=== PATIENT | male | born 1955 | race Caucasian/White ===

== ENCOUNTER 2017-02-07 13:41 | Emergency (ER) | payer SELFPAY ==
[2017-02-07] MEDS ORDERED: methylPREDNISolone Sod Succ/PF 125 MG/2 ML VIAL ONE (13:47)
[2017-02-07] MEDS ORDERED: Famotidine/PF 20 mg/2ml Vial ONE (13:47)
== END 2017-02-07 15:13 | disposition home or self-care (01) ==
LOC: ERS 13:41
DX: S00.86XA Insect bite (nonvenomous) of other part of head, initial encounter (principal); W57.XXXA Bitten or stung by nonvenomous insect and other nonvenomous arthropods, initial encounter
CPT/HCPCS: 96374; 96375; J2930; S0028